=== PATIENT | female | born 1990 | race Caucasian/White ===

== ENCOUNTER 2023-04-15 13:38 | Inpatient (IN) | payer MEDICAID, SELFPAY ==
[2023-04-15 13:41] VITALS: BP 132/91; PULSE 120; RESP 20; TEMP 37.2; O2SAT 98
--- NOTE | 2023-04-15 13:45 | DI.US_ITS ---
Exam(s) US PELVIS TRANSVAGINAL EXAM: US PELVIS TRANSVAGINAL CLINICAL HISTORY: heavy vaginal bleeding, lower abd pain. TECHNIQUE: Transabdominal and transvaginal pelvic ultrasound was performed using standard protocol. COMPARISON: No exams were available for comparison FINDINGS: UTERUS: Position: Anteverted. Size: 7.5 long by 4.0 AP by 4.9 transverse cm Endometrium: 0.5 cm. Normal for patient's menstrual status. Myometrium: Unremarkable. Cervix: Unremarkable. OVARIES: Right: 3.3 x 1.5 x 1.5 cm Cyst or mass: No suspicious cystic or solid masses. Left: 3.2 x 2.2 x 1.8 cm Cyst or mass: No suspicious cystic or solid masses. DOPPLER: Color: Symmetric and uniform flow to both ovaries. CUL-DE-SAC: Free fluid: None. Other: There is a 5.3 x 2.9 x 4.0 cm complex fluid collection posterior to both the uterus and the re ctum raising the question of an abscess. IMPRESSION: 1. Normal-appearing uterus with endometrial stripe within normal limits. 2. Unremarkable bilateral ovaries. 3. 5.3 x 2.9 x 4 cm complex fluid collection posterior to both the uterus in the rectum suspicious fo r perirectal abscess. CT scan of the pelvis is recommended for further evaluation. 4. Findings were discussed with Dr. Villa at 3:23 p.m. on 04/15/2023. DATA REPOSITORY:
[2023-04-15 14:16] VITALS: BP 128/90; PULSE 120
[2023-04-15 14:18] LABS: Abs Immature Grans 0.14 10^3/uL (0.0-0.06); Absolute Basophil Count 0.08 10^3/uL (0.0-0.2); Absolute Eosinophil Count 0.12 10^3/uL (0.0-0.7); Absolute Lymphocyte Count 1.92 10^3/uL (1.2-3.4); Absolute Monocyte Count 1.07 10^3/uL (0.1-0.8); Absolute Neutrophil Count 9.91 10^3/uL (1.2-6.7); Basophils % 0.6; Eosinophils % 0.9; HCT 41.4 % (36.0-46.0); HGB 13.3 g/dL (11.2-15.7); Immature Grans % 1.1; Lymphocytes % 14.5; MCHC 32.1 % (32.0-36.0); MCV 84 fL (80-95); MPV 8.9 fL (8.0-11.0); Monocytes % 8.1; Neutrophils % 74.8; Platelet Count 401 10^3/uL (130-400); RBC 4.93 10^6/uL (3.93-5.22); RDW 12.8 % (11.7-14.6); RDW-SD 39.1 fL; WBC 13.25 10^3/uL (4.4-10.8)
--- NOTE | 2023-04-15 14:24 | W.ED.GENAD ---
Discharge Plan Disposition Patient Disposition: Admit to [facility] Condition: Serious Discharge Details Clinical Impression: Abscess, perirectal Primary Care Provider: Unknown,Unknown ED Provider: Marlin Villa Home Meds and New Rx's Prescriptions: No Action acetaminophen [Aphen] 325 mg tablet 325 mg PO Q4H PRN ibuprofen [IBU] 800 mg tablet 800 mg PO Q6H Medical Decision Making 32yo F with PCOS presenting with intermittent heavy vaginal bleeding x 3 weeks and low abdominal pain radiating into her back. Associated sensation of pressure in her vagina and rectum. Has been taking maximum dose tylenol and ibuprofen at home without significant improvement in symptoms. Systemically well. Tachycardiac on arrival to 120, vital signs otherwise reassuring, afebrile. Well appearing, not overtly septic. Abdominal exam with mild lower abdominal tenderness with no peritoneal signs. Will treat pain with toradol, PO oxycodone. Labs reviewed as below, CBC with no anemia, borderline leukocytosis at 13, CMP with no actionable abnormalities, serum negative. Pelvic ultrasound as below, discussed with radiologist; normal uterus and ovaries, no torsion, however does have fluid collection in pelvis. CT ordered and independently reviewed, agree with radiology read below with rectosigmoid abscess. On reassessment patient remains well appearing, reports pain had improved but is again increasing. Remains tachycardiac to the 110's. Will add IV morphine and give IVFB. Technically meets SIRS/sepsis criteria with white count (just over 13) and tachcyardia but remains overall well appearing and feels systemically well. Lactate order. Needs source control rather than antibiotics. Discussed with Dr. Mendez from surgery who will evaluate case. Discussed with anesthesiologist director of cardiopulmonary services. Signed out to oncoming physician; anticipate admission to surgery. Imaging Data Radiologic Study: Imaging: Ultrasound Radiologist's impression: IMPRESSION: 1. Normal-appearing uterus with endometrial stripe within normal limits. 2. Unremarkable bilateral ovaries. 3. 5.3 x 2.9 x 4 cm complex fluid collection posterior to both the uterus in the rectum suspicious for perirectal abscess. CT scan of the pelvis is recommended for further evaluation. 4. Findings were discussed with Dr. Villa at 3:23 p.m. on 04/15/2023. Radiologic Study #2: Imaging: CT Scan Radiologist's impression: IMPRESSION: 1. Wall thickening involving the distal sigmoid colon and the rectum with adjacent inflammatory changes. The findings are consistent with the recto colitis. 2. 4.1 x 5.1 x 6.1 cm thick walled fluid collection to the right of the inflamed rectosigmoid colon. This is suspicious for an abscess. A normal appendix is not visualized. Due to its proximity to the cecum, an acute appendicitis cannot be entirely excluded. 3. No pneumoperitoneum. 4. Findings were discussed with Dr. Villa at 4:11 p.m. on 04/15/2023. Lab Data Lab results reviewed: Yes I reviewed the patient's lab results. Labs: Laboratory Tests Range/Units 04/15/23 14:05 WBC (4.4-10.8) 10^3/uL 13.25 H RBC (3.93-5.22) 10^6/uL 4.93 Hgb (11.2-15.7) g/dL 13.3 Hct (36.0-46.0) % 41.4 MCV (80-95) fL 84 MCH (27.0-33.0) pg 27.0 MCHC (32.0-36.0) % 32.1 RDW (11.7-14.6) % 12.8 Plt Count (130-400) 10^3/uL 401 H MPV (8.0-11.0) fL 8.9 Immature Gran % 1.1 Neutrophils % 74.8 Lymphocytes % 14.5 Monocytes % 8.1 Eosinophils % 0.9 Basophils % 0.6 Nucleated RBC % (0.0-0.3) % 0.0 Absolute Neutrophils (1.2-6.7) 10^3/uL 9.91 H Absolute Lymphocytes (1.2-3.4) 10^3/uL 1.92 Absolute Monocytes (0.1-0.8) 10^3/uL 1.07 H Absolute Eosinophils (0.0-0.7) 10^3/uL 0.12 Absolute Basophils (0.0-0.2) 10^3/uL 0.08 Sodium (136-145) mmol/L 134 L Potassium (3.5-5.1) mmol/L 3.6 Chloride (98-107) mmol/L 97 L Carbon Dioxide (21.0-32.0) mmol/L 25.4 Anion Gap (3-11) mmol/L 11.6 H BUN (7-18) mg/dL 8 Creatinine (0.55-1.02) mg/dL 0.7 Est GFR (CKD-EPI 2020) (mL/min/1.73m2) 118.51 Glucose (74-106) mg/dL 105 Calcium (8.5-10.1) mg/dL 9.6 Total Bilirubin (0.2-1.0) mg/dL 0.6 AST (15-37) U/L 17 ALT (14-59) U/L 34 Alkaline Phosphatase (46-116) U/L 101 Total Protein (6.4-8.2) g/dL 8.6 H Albumin (3.4-5.0) g/dL 2.9 L Beta HCG, Quant (1-3) mIU/mL 1 Patient ABO/Rh O Positive Antibody Screen NEGATIVE HPI General Mode of arrival: ambulatory. Date/Time Provider Initiated Documentation: 04/15/23 13:52. Limitations to Documentation: no limitations. Information obtained by: patient. HPI Narrative: 32yo F with PCOS presenting with intermittent heavy vaginal bleeding x 3 weeks and low abdominal pain radiating into her back. Associated sensation of pressure in her vagina and rectum. Has been taking maximum dose tylenol and ibuprofen at home without significant improvement in symptoms. Associated nausea when the pain is most severe, no vomiting. No constipation, diarrhea, or bloody stool. Does feel somewhat lightheaded. Has not passed out. No dysuira, hematuria, or vaginal discharge. Has had a tubal ligation. She is otherwise in her usual state of health with no fevers, chills, rash, chest pain, shortness of breath, or other concerns. Related Data Home Medications Medication Instructions Recorded Confirmed acetaminophen 325 mg tablet (Aphen) 325 mg PO Q4H PRN 04/15/23 04/15/23 ibuprofen 800 mg tablet (IBU) 800 mg PO Q6H 04/15/23 04/15/23 Allergies Allergy/AdvReac Type Severity Reaction Status Date / Time No Known Allergies Allergy Unverified 04/15/23 13:49 General Stated Complaint: Abd Prob STEVEN: 3 Review of Systems Narrative: see HPI PFSH All Active Problems (Updated 04/15/23 @ 16:35 by Marlin Villa MD) Abscess, perirectal (Acute) Social History Smoking risk assessment performed?: No Exam Narrative Exam Narrative: General: Alert, well appearing, well nourished, in no acute distress. Head: Normocephalic, atraumatic Neck: Trachea midline, Neck supple. Cardiac: Tachycardiac to 110's, regular, no murmurs appreciated Resp: No respiratory distress. CTAB. Abd: Soft, non-distended, mild lower abdominal tenderness with no rebound or guarding. : No suprapubic tenderness. No active vaginal bleeding. Extremities: No deformities. No peripheral edema. Neurologic: GCS 15. Moves all extremities freely against gravity Course Vital Signs Vital signs: Vital Signs Temperature 37.2 C 04/15/23 13:41 Pulse 120 H 04/15/23 13:41 Respiratory Rate 20 04/15/23 13:41 Blood Pressure 132/91 H 04/15/23 13:41 Pulse Oximetry 98 04/15/23 13:41 Temperature 37.2 C 04/15/23 13:41 Temperature Source Oral 04/15/23 13:41 Pulse 120 H 04/15/23 13:41 Respiratory Rate 20 04/15/23 13:41 Blood Pressure 132/91 H 04/15/23 13:41 Blood Pressure Position Sitting 04/15/23 13:41 Pulse Oximetry 98 04/15/23 13:41 Oxygen Delivery Method Room Air 04/15/23 13:41 Oxygen Flow Rate 0 04/15/23 13:41 Lab/Test Results Lab/Test Results: Laboratory Tests Range/Units 04/15/23 14:05 WBC (4.4-10.8) 10^3/uL 13.25 H RBC (3.93-5.22) 10^6/uL 4.93 Hgb (11.2-15.7) g/dL 13.3 Hct (36.0-46.0) % 41.4 MCV (80-95) fL 84 MCH (27.0-33.0) pg 27.0 MCHC (32.0-36.0) % 32.1 RDW (11.7-14.6) % 12.8 Plt Count (130-400) 10^3/uL 401 H MPV (8.0-11.0) fL 8.9 Immature Gran % 1.1 Neutrophils % 74.8 Lymphocytes % 14.5 Monocytes % 8.1 Eosinophils % 0.9 Basophils % 0.6 Nucleated RBC % (0.0-0.3) % 0.0 Absolute Neutrophils (1.2-6.7) 10^3/uL 9.91 H Absolute Lymphocytes (1.2-3.4) 10^3/uL 1.92 Absolute Monocytes (0.1-0.8) 10^3/uL 1.07 H Absolute Eosinophils (0.0-0.7) 10^3/uL 0.12 Absolute Basophils (0.0-0.2) 10^3/uL 0.08 Sign Out Sign Out Data: Sign Out Comment: Rectosigmoid abscess. Pending lactic and UA, surgery to see. Anticipate admission. Last updated by Marlin Villa MD at 04/15/23 16:44
[2023-04-15 14:31] VITALS: BP 136/82; PULSE 119
[2023-04-15] MEDS: Ketorolac 15 MG/ML VIAL IVP (14:34)
[2023-04-15] MEDS: oxyCODONE 5 MG TAB PO (14:35)
[2023-04-15] MEDS: Normal Saline 1,000 ML 1000 ML IV (14:35)
[2023-04-15 14:38] LABS: ALT 34 U/L (14-59); AST 17 U/L (15-37); Albumin 2.9 g/dL (3.4-5.0); Alkaline Phosphatase 101 U/L (46-116); Anion Gap 11.6 mmol/L (3-11); BUN 8 mg/dL (7-18); Bilirubin, Total 0.6 mg/dL (0.2-1.0); CO2 25.4 mmol/L (21.0-32.0); CREATININE 0.7 mg/dL (0.55-1.02); Calcium 9.6 mg/dL (8.5-10.1); Chloride 97 mmol/L (98-107); Estimated GFR 118.51 (mL/min/1.73m2); Glucose 105 mg/dL (74-106); HCG Quant, Pregnancy 1 mIU/mL (1-3); Potassium 3.6 mmol/L (3.5-5.1); Sodium 134 mmol/L (136-145); Total Protein 8.6 g/dL (6.4-8.2)
--- NOTE | 2023-04-15 15:30 | DI.CT_ITS ---
Exam(s) CT ABDOMEN PELVIS W EXAM: CT ABDOMEN PELVIS W CLINICAL HISTORY: lower abdominal pain/pressure TECHNIQUE: Imaging Protocol: Axial computed tomography images with coronal and sagittal reformatted images were created and reviewed CONTRAST MATERIAL: Intravenous: Omnipaque 350 Contrast volume:100 mL Oral: No COMPARISON: No exams were available for comparison FINDINGS: ABDOMEN: Lung Bases: Normal where visualized. Liver: Normal density. No measurable mass. Portal, Superior Mesenteric, and Splenic Veins: Unremarkable. Gallbladder and Biliary Tract: Status post cholecystectomy. No significant biliary ductal dilatation is present. The common duct size likely reflects the post cholecystectomy state. Pancreas: Normal density, no abnormal calcifications or inflammatory process. Spleen: Normal. Adrenals: No masses seen. Kidneys: Normal size, contour and axis. No radiodense stones or obstructive uropathy. No masses seen. Abdominal Aorta: Abdominal portion non-dilated. Bowel: There is bowel wall thickening involving the distal sigmoid and rectum. There is stranding se en in the surrounding soft tissues. There is also a fluid collection measuring 4.1 craniocaudad by 5 .1 transverse by 6.1 cm AP. It has thickened wall in lies to the right of the inflamed rectosigmoid junction. This likely reflects an abscess. This appears to correspond to the finding seen on the pe lvic ultrasound from the same day. There is no evidence of bowel obstruction. A normal appendix is not visualized. There is no pneumatosis. Peritoneal Cavity: No ascites, collection or mesenteric inflammatory response. No free air. Lymph Nodes: Mild enlarged reactive lymph nodes are seen in the pelvis. Bones: Within normal limits for the patient's age. Soft Tissues: No evidence of a subcutaneous abscess is seen. PELVIS: Bladder: Symmetric distention, no gross wall thickening. Reproductive Organs: Unremarkable as visualized. Lymph Nodes: Within normal limits. Bones: Within normal limits for the patient's age. IMPRESSION: 1. Wall thickening involving the distal sigmoid colon and the rectum with adjacent inflammatory morales es. The findings are consistent with the recto colitis. 2. 4.1 x 5.1 x 6.1 cm thick walled fluid collection to the right of the inflamed rectosigmoid colon. This is suspicious for an abscess. A normal appendix is not visualized. Due to its proximity to th e cecum, an acute appendicitis cannot be entirely excluded. 3. No pneumoperitoneum. 4. Findings were discussed with Dr. Boccia at 4:11 p.m. on 04/15/2023. RADIATION DOSE DELIVERED: Total DLP DATA REPOSITORY: All CT scans at this facility are submitted to the National Radiology Data Registry (NRDR) Dose Index Registry (DIR) with the [employer] (ACR). RADIATION OPTIMIZATION: All CT scans at this facility use at least one of these dose optimization te chniques: automated exposure control; mA and/or kV adjustment per patient size (includes targeted exa ms where dose is matched to clinical indication); or iterative reconstruction.
[2023-04-15] MEDS: Normal Saline - Diluent 50 ML VIAL IJ (15:42)
[2023-04-15] MEDS: Omnipaque 350 MG/ML 100 ML BTL IJ (15:43)
[2023-04-15 16:43] LABS: Lactate 0.6 mmol/L (0.6-1.4)
[2023-04-15] MEDS: Ondansetron 4 MG/2 ML VIAL IVP ×2 (16:46→21:53)
--- NOTE | 2023-04-15 17:01 | W.EDPROG ---
Date of service: 04/15/23 Time of Service: 17:01 Medical Decision Making I received signout on this 32-year-old female found to have a rectosigmoid abscess for which general surgery has been consulted. She has a normal creatinine. Comprehensive metabolic panel showing normal renal function no acute LFT abnormalities. COVID-negative. CBC with leukocytosis. No thrombocytopenia. Elevated CRP. Given pending general surgery consult will order piperacillin tazobactam to cover abscess. Reassuring normal lactate. 6 PM I spoke with Dr. Mendez the general surgery team who graciously agreed to hospitalize the patient. Sign Out Sign Out Data: Sign Out Comment: Rectosigmoid abscess. Pending lactic and UA, surgery to see. Anticipate admission. Last updated by Marlin Villa MD at 04/15/23 16:44 Discharge Plan Disposition Patient Disposition: Admit to [facility] Condition: Serious Discharge Details Clinical Impression: Abscess, perirectal Admit Date/Time: 04/15/23 17:20 Admit Provider: Stiven Mendez Attending Provider: Stiven Mendez Primary Care Provider: Unknown,Unknown ED Provider: Abdirahman Marshall Discharge Data Discharge Date/Time-TO BE ENTERED AT DEPARTURE: 04/15/23 18:19
[2023-04-15] MEDS: PIPERACILLIN/TAZO 3.375 GM in Normal Saline 50 ML IVPB (17:17)
--- NOTE | 2023-04-15 17:19 | HPE_ITS ---
Date of service: 04/15/23 Time of Service: 17:19 Assessment and Plan Assessment and plan (1) Pelvic abscess in female: Status: Acute Assessment and plan: Her CT supports a diagnosis of deep pelvic abscess. There is some sign of thickening inflammation of the rectosigmoid junction, but I do not see any clear signs of diverticulitis. In the absence of an obvious appendix suggest perforated appendicitis as a leading diagnosis. Given her tachycardia and leukocytosis, she has certainly has signs of sepsis. For now, we will start her on some broad-spectrum antibiotics. I suspect she will respond to some more resuscitation, and I do not see a compelling reason to move to the operating room emergently. Especially given the duration of her symptoms. I do think she would be a good candidate for percutaneous drainage if this is accessible. I have already shared the images with the radiologist at [facility], and awaiting further definitive opinion regarding whether or not this is accessible if it is, that I would favor moving forward with percutaneous drainage. If not, we can attempt a short trial of nonoperative management and antibiotics, but given the size of the abscess, I am skeptical that antibiotics alone would treat this completely. History of Present Illness History of Present Illness Chief Complaint: abdominal pain Narrative: Cathy is 32 years old, and she began experiencing abdominal discomfort about 20 days ago. At first, she felt like it was a sense of heaviness in the lower part of her abdomen. It was associated with some vaginal bleeding, and she suspected this might be menstruation. However, the symptoms continue to evolve, and she developed pain that became more sharp across the midportion of her lower abdomen. For the first week or so, the pain seem to wax and wane. She then started to develop a sense of needing to move her bowels and empty her bladder, and this became more uncomfortable over the past week or so. For the past 24 hours she has had loss of appetite with some nausea, and increased intensity of the pain in her lower abdomen. She came to the emergency department was found have a white blood cell count around 13,000. She underwent a CAT scan of the abdomen and pelvis that showed a pelvic abscess. She also has a little bit of inflammation of the rectal wall adjacent to the abscess. There is no signs of diverticulitis, and the absence of an obvious appendix raises the possibility of perforated appendicitis. Review of Systems Constitutional Constitutional: Reports fatigue, Denies fever(s), Reports lethargy and Reports poor appetite Eyes Eyes: Reports system reviewed and no additional complaints, except as documented ENT Ears, Nose, Mouth, and Throat: Reports system reviewed and no additional complaints, except as documented Cardiovascular Cardiovascular: Denies chest pain and Denies dyspnea Respiratory Respiratory: Denies chest congestion, Denies cough and Denies dyspnea Gastrointestinal Gastrointestinal: Reports abdominal pain, Reports change in bowel habits, Reports cramping, Denies diarrhea and Reports nausea Genitourinary Genitourinary: Reports system reviewed and no additional complaints, except as documented Neurologic Neurologic: Reports system reviewed and no additional complaints, except as documented Endocrine Endocrine: Reports fatigue Hematologic/Lymphatic Hematologic/Lymphatic: Denies easy bleeding and Denies easy bruising PFSH All Active Problems (Updated 04/15/23 @ 21:08 by Stiven Mendez MD) Pelvic abscess in female (Acute) Social History Smoking risk assessment performed?: No Meds Allergies and Home Medications Allergies Allergy/AdvReac Type Severity Reaction Status Date / Time No Known Allergies Allergy Unverified 04/15/23 13:49 Home Medications Medication Instructions Recorded Confirmed Type acetaminophen 325 mg tablet (Aphen) 325 mg PO Q4H PRN 04/15/23 04/15/23 History ibuprofen 800 mg tablet (IBU) 800 mg PO Q6H 04/15/23 04/15/23 History Exam Const General: cooperative and comfortable Orientation: alert, awake and oriented x3 HENMT Head: normal to inspection Eyes General: appearance normal, both eyes and all related structures Neck Neck: normal visual inspection, full ROM and no lymphadenopathy Chest Chest: normal inspection of the chest Resp Effort & Inspection: no cough Auscultation: clear to auscultation bilaterally Cardio Rate: tachycardic Rhythm: regular rhythm Heart Sounds: S1 normal GI Inspection: normal to inspection Palpation: no guarding, no hernias and tender suprapubicly Percussion: normal to percussion Skin General skin exam: no rashes or lesions noted Neuro General: patient alert, patient awake and patient oriented x3 Extrem General: normal to inspection Results Imaging Abdomen CT scan report/results: report reviewed and image reviewed CT scan - pelvis: report reviewed and image reviewed Labs 04/15/23 14:05 04/15/23 14:05 Labs: Laboratory Results - last 24 hr 04/15/23 04/15/23 14:05 16:39 WBC 13.25 H RBC 4.93 Hgb 13.3 Hct 41.4 MCV 84 MCH 27.0 MCHC 32.1 RDW 12.8 Plt Count 401 H MPV 8.9 Immature Gran % 1.1 Neutrophils % 74.8 Lymphocytes % 14.5 Monocytes % 8.1 Eosinophils % 0.9 Basophils % 0.6 Nucleated RBC % 0.0 Absolute Neutrophils 9.91 H Absolute Lymphocytes 1.92 Absolute Monocytes 1.07 H Absolute Eosinophils 0.12 Absolute Basophils 0.08 VBG Lactate 0.6 Sodium 134 L Potassium 3.6 Chloride 97 L Carbon Dioxide 25.4 Anion Gap 11.6 H BUN 8 Creatinine 0.7 Est GFR (CKD-EPI 2020) 118.51 Glucose 105 Calcium 9.6 Total Bilirubin 0.6 AST 17 ALT 34 Alkaline Phosphatase 101 Total Protein 8.6 H Albumin 2.9 L Beta HCG, Quant 1 Patient ABO/Rh O Positive Antibody Screen NEGATIVE Last Vital Signs Temp 99 F 04/15/23 13:41 Pulse 119 H 04/15/23 14:31 Resp 20 04/15/23 13:41 BP 136/82 04/15/23 14:31 Pulse Ox 98 04/15/23 13:41 Time Spent Time spent with Patient: 55-74 minutes Time was spent: preparing to see the patient(eg.review tests), obtaining and/or reviewing separately otained hiistory, ordering medications,tests, procedures, referring, communicating with other health medicare sales executive, indepentently interpreting results, counseling the patient and care coordination
[2023-04-15] MEDS: Lactated Ringers 1,000 ML 75 ML IV (19:00)
[2023-04-15] MEDS: Lactated Ringers 500 ML 1000 ML IV (19:14)
[2023-04-15 19:56] VITALS: BP 121/78; PULSE 89; RESP 18; TEMP 36.5; O2SAT 93
[2023-04-15] MEDS: ACETAMINOPHEN 1,000 MG/100 ML BTL 400 MG IVPB (20:22)
[2023-04-15] MEDS: Normal Saline Flush 10 ML SYR IVP (20:23)
[2023-04-15 20:57] LABS: Bilirubin Negative (Negative); Blood Negative (Negative); Clarity Clear (Clear); Glucose Negative (Negative); Ketones Negative (Negative); Leukocyte Esterase Negative (Negative); Nitrite Negative (Negative); Specific Gravity <= 1.005 (1.005-1.025); Urobilinogen 0.2 mg/dL (Up to 0.2); pH 5.5 (5-8)
[2023-04-15 21:06] VITALS: BP 120/76; PULSE 105; RESP 16; TEMP 37.3; O2SAT 95
[2023-04-15 22:18] LABS: Abs Immature Grans 0.09 10^3/uL (0.0-0.06); Absolute Basophil Count 0.05 10^3/uL (0.0-0.2); Absolute Eosinophil Count 0.19 10^3/uL (0.0-0.7); Absolute Lymphocyte Count 3.12 10^3/uL (1.2-3.4); Absolute Monocyte Count 1.33 10^3/uL (0.1-0.8); Absolute Neutrophil Count 7.16 10^3/uL (1.2-6.7); Basophils % 0.4; Eosinophils % 1.6; HGB 10.5 g/dL (11.2-15.7); Immature Grans % 0.8; Lymphocytes % 26.1; MCH 27.6 pg (27.0-33.0); MCHC 32.8 % (32.0-36.0); MCV 84 fL (80-95); MPV 8.7 fL (8.0-11.0); Monocytes % 11.1; Platelet Count 297 10^3/uL (130-400); RBC 3.81 10^6/uL (3.93-5.22); RDW 12.9 % (11.7-14.6); RDW-SD 39.3 fL; WBC 11.94 10^3/uL (4.4-10.8)
[2023-04-16] VITALS (9 sets, daily range): BP systolic 89–135; BP diastolic 61–90; PULSE 60–104; RESP 16–20; TEMP 35.9–37.4; O2SAT 96–100
[2023-04-16] MEDS: Ketorolac 15 MG/ML VIAL IVP ×4 (00:30→23:29)
[2023-04-16] MEDS: PIPERACILLIN/TAZO 3.375 GM in Normal Saline 50 ML IVPB ×4 (00:30→23:30)
[2023-04-16] MEDS: Normal Saline Flush 10 ML SYR IVP ×4 (00:31→23:31)
[2023-04-16] MEDS: ACETAMINOPHEN 1,000 MG/100 ML BTL 400 MG IVPB ×3 (04:02→19:46)
[2023-04-16] MEDS: Ondansetron 4 MG/2 ML VIAL IVP ×3 (04:10→19:41)
[2023-04-16 08:39] LABS: Anion Gap 7.8 mmol/L (3-11); BUN 10 mg/dL (7-18); CO2 28.2 mmol/L (21.0-32.0); CREATININE 0.9 mg/dL (0.55-1.02); Calcium 8.8 mg/dL (8.5-10.1); Chloride 102 mmol/L (98-107); Estimated GFR 87.65 (mL/min/1.73m2); Glucose 102 mg/dL (74-106); Potassium 3.7 mmol/L (3.5-5.1); Sodium 138 mmol/L (136-145)
[2023-04-16 09:25] LABS: HCT 32.9 % (36.0-46.0); HGB 10.7 g/dL (11.2-15.7); MCH 27.7 pg (27.0-33.0); MCHC 32.5 % (32.0-36.0); MCV 85 fL (80-95); RBC 3.86 10^6/uL (3.93-5.22); RDW 13.1 % (11.7-14.6); RDW-SD 40.6 fL; WBC 7.82 10^3/uL (4.4-10.8)
[2023-04-16 09:26] LABS: MPV 8.8 fL (8.0-11.0); Platelet Count 295 10^3/uL (130-400)
--- NOTE | 2023-04-16 11:50 | INITIAL_ITS ---
Date of service: 04/16/23 Time of Service: 11:50 [facility] All Active Problems Acute gangrenous appendicitis with perforation and peritonitis (Acute) Pelvic abscess in female (Acute) Social History Smoking risk assessment performed?: No Housing: condominium
[2023-04-16] MEDS: HYDROmorphone 2 MG/ML SYR 1 MG IVP (17:48)
[2023-04-16] MEDS: Lactated Ringers 1,000 ML 75 ML IV (17:50)
[2023-04-16] MEDS: LORazepam 2 MG/ML VIAL 0.5 MG IVP (18:14)
[2023-04-16] MEDS: Methocarbamol 750 MG TAB PO (18:50)
[2023-04-16] MEDS: Prochlorperazine 10 MG/2 ML VIAL 5 MG IVP (22:08)
[2023-04-17 03:25] VITALS: BP 109/72; PULSE 68; RESP 18; TEMP 36.1; O2SAT 96
[2023-04-17] MEDS: ACETAMINOPHEN 1,000 MG/100 ML BTL 400 MG IVPB ×3 (03:40→20:28)
[2023-04-17] MEDS: Promethazine 25 MG TAB PO (03:49)
[2023-04-17] MEDS: oxyCODONE 5 MG TAB PO (03:49)
[2023-04-17] MEDS: Ketorolac 15 MG/ML VIAL IVP ×4 (05:52→23:38)
[2023-04-17] MEDS: PIPERACILLIN/TAZO 3.375 GM in Normal Saline 50 ML IVPB ×4 (05:55→23:33)
[2023-04-17 08:00] VITALS: BP 99/67; PULSE 62; RESP 18; TEMP 36.4; O2SAT 97
[2023-04-17] MEDS: Methocarbamol 750 MG TAB PO ×4 (08:37→20:28)
[2023-04-17] MEDS: Normal Saline Flush 10 ML SYR IVP ×6 (08:37→23:39)
[2023-04-17] MEDS: Psyllium PKT 1 EACH PO (08:37)
[2023-04-17] MEDS: Polyethylene Glycol 3350 17 GM PACKET PO (08:37)
[2023-04-17 08:42] LABS: C-Reactive Protein 12.54 mg/dL (0.0-0.3)
--- NOTE | 2023-04-17 09:49 | PGE_ITS ---
Date of Service Date of service: 04/17/23 Time of Service: 09:49 Assessment and Plan Assessment and plan (1) Pelvic abscess in female: Status: Acute Assessment and plan: post op day 1 S/P drain placement via IR at [facility] Will trial aqua K pack and scheduled robaxin to help reduce discomfort. Will restart regular diet. Encouraged ambulation and activity OOB as tolerated Continue IV antibiotics. Discussed with both the patient and nsg the importance of patient education around drain management. Will reassess pain control later today. Subjective Subjective Interval history since last seen: patient reports she is having significant discomfort in her buttocks following the drain placement. She states this pain is worse then what she has ever experienced previously. She states she is able to ambulate and use the restroom without any difficulty. Denies nausea, vomiting or fevers. Exam Const General: cooperative, healthy appearing, comfortable and anxious Orientation: alert and oriented x3 Resp Effort & Inspection: normal respiratory effort, no audible wheezes and no cough GI Other: Drain in place, scan serous fluid noted in bulb. Discussed with nsg and requested the drain to be flushed. Unable to strip and promote drainage of co ntents within the tubing of the drain. Objective Last Vital Signs Temp 36.4 C L 04/17/23 08:00 Pulse 62 04/17/23 08:00 Resp 18 04/17/23 08:00 BP 99/67 L 04/17/23 08:00 Pulse Ox 97 04/17/23 08:00 Laboratory Results - last 24 hr 04/17/23 08:15 C-Reactive Protein 12.54 H PAWSS Have you Been Recently Intoxicated or Drunk Within the Last 30 days?: No Have you Ever Experienced Previous Episodes of Alcohol Withdrawal?: No Have you ever Experienced Withdrawal Seizures?: No Have you ever Experienced Delirium Tremens(DT)s?: No Have you ever undergone Alcohol Rehabilitation Treatment (i.e, inpt ot outpatient treatment programs)?: No Have you ever Experienced Blackouts?: No Have you ever Combined Alcohol with other Downers within the last 90 days?: No Have you ever Combined Alcohol with any other Substance of Abuse during the last 90 days?: No Positive Blood Alcohol level on Presentation? [PCS.BAL]: No Evidence of Increased Autonomic Activity (i.e. HR>120, tremor, sweating, agitation, nausea)?: No Result: 0 Time Spent with Patient Time Spent with Patient: <25 minutes Time was spent: preparing to see the patient(eg.review tests) and ordering medications,tests, procedures
--- NOTE | 2023-04-17 11:04 | PDOC.CMPRO ---
Date of service: 04/17/23 Time of Service: 11:04 Care Management Progress Note Progress Note Text Progress Note Text: S/O:Cathy was sitting up in bed when CM met with her. She stated that she continues to have a lot of pain and that her pain medicine is being adjusted. She identified the biggest issue she has at the moment is determining who can help her flush and empty her drain 4 times a day. She is a single parent and her oldest child is only 8. She has a boyfriend but he lives in [place] and is not available most days due to his work schedule. Cathy stated that she discussed this with Dr. Mendez and he will try to come up with a solution. The problem is that the drain is in her back and she can neither see it nor reach it. A: Cathy is a 32 year old woman admitted on 04/15/23 with a pelvic abscess P:Cathy will likely be discharged home with no new services. She will follow up with surgery and her plan of care and transport with family. CM will follow and continue to assess for discharge needs.
[2023-04-17 11:48] VITALS: BP 97/65; PULSE 71; RESP 18; TEMP 36.4; O2SAT 96
[2023-04-17] MEDS: Lactated Ringers 1,000 ML 75 ML IV ×2 (11:55→23:35)
--- NOTE | 2023-04-17 12:15 | PDOC.HHF2F ---
Home Health Referral Home Health Orders Clinical synopsis of why skilled professionals are needed: Cathy is a 32-year-old woman with a pelvic abscess that required percutaneous drainage. She has a new drain exiting her back. She has difficulty assessing the access site because of its location Medical diagnosis necessitation home health referral: Pelvic abscess with percutaneous drainage Registered Nurse: Check all that apply Assess wound for signs and symptoms of infection, instruct on wound care and/or provide skilled wound care consisting of: Cathy needs assistance with drain care and maintenance because of the location on her body Encounter Date and Reason: I certify that a FTF encounter for this patient was performed on April 17, 2023 and that such encounter was related to the primary reason the patient requires home health services. The encounter was conducted in the following manner: By me as the certifying physician, GREENS CUTTER, PA or By an inpatient physician, GREENS CUTTER or PA during an inpatient stay who communicated findings to me, Certification And Authentication I certify that I composed the above information based on my clinical judgment relating to this patient's medical condition and, if applicable, clinical findings communicated to me by the NPP or inpatient physician who performed the FTF encounter. Name of Provider that will be monitoring home health services: Stiven Mendez
[2023-04-17 15:24] VITALS: BP 114/78; PULSE 85; RESP 19; TEMP 36.9; O2SAT 97
[2023-04-17 19:51] VITALS: BP 117/79; PULSE 87; RESP 19; TEMP 37; O2SAT 95
[2023-04-17 23:46] VITALS: BP 112/74; PULSE 76; RESP 16; TEMP 36.4; O2SAT 96
[2023-04-18] MEDS: diphenhydrAMINE 25 MG CAP PO (01:23)
[2023-04-18 03:23] VITALS: BP 109/71; PULSE 70; RESP 16; TEMP 36.2; O2SAT 95
[2023-04-18] MEDS: ACETAMINOPHEN 1,000 MG/100 ML BTL 400 MG IVPB ×2 (03:55→11:10)
[2023-04-18] MEDS: Ketorolac 15 MG/ML VIAL IVP ×2 (05:38→12:20)
[2023-04-18] MEDS: Normal Saline Flush 10 ML SYR IVP ×2 (05:39→12:20)
[2023-04-18] MEDS: PIPERACILLIN/TAZO 3.375 GM in Normal Saline 50 ML IVPB ×2 (05:42→12:20)
[2023-04-18 07:27] VITALS: BP 114/70; PULSE 77; RESP 18; TEMP 36.9; O2SAT 96
[2023-04-18 07:28] LABS: C-Reactive Protein 7.22 mg/dL (0.0-0.3)
[2023-04-18] MEDS: Methocarbamol 750 MG TAB PO ×2 (08:16→12:20)
[2023-04-18 10:11] LABS: HCT 35.6 % (36.0-46.0); HGB 11.7 g/dL (11.2-15.7); MCH 27.9 pg (27.0-33.0); MCHC 32.9 % (32.0-36.0); MCV 85 fL (80-95); MPV 9.2 fL (8.0-11.0); Platelet Count 424 10^3/uL (130-400); RBC 4.19 10^6/uL (3.93-5.22); RDW 12.7 % (11.7-14.6); WBC 7.17 10^3/uL (4.4-10.8)
[2023-04-18 11:18] VITALS: BP 106/70; PULSE 66; RESP 18; TEMP 36.6; O2SAT 96
--- NOTE | 2023-04-18 11:31 | W.PM.PROGNOT ---
Objective Last Vital Signs Temp 97.9 F 04/18/23 11:18 Pulse 66 04/18/23 11:18 Resp 18 04/18/23 11:18 BP 106/70 04/18/23 11:18 Pulse Ox 96 04/18/23 11:18 Laboratory Results - last 24 hr 04/18/23 06:13 WBC 7.17 RBC 4.19 Hgb 11.7 Hct 35.6 L MCV 85 MCH 27.9 MCHC 32.9 RDW 12.7 Plt Count 424 H MPV 9.2 C-Reactive Protein 7.22 H PAWSS Have you Been Recently Intoxicated or Drunk Within the Last 30 days?: No Have you Ever Experienced Previous Episodes of Alcohol Withdrawal?: No Have you ever Experienced Withdrawal Seizures?: No Have you ever Experienced Delirium Tremens(DT)s?: No Have you ever undergone Alcohol Rehabilitation Treatment (i.e, inpt ot outpatient treatment programs)?: No Have you ever Experienced Blackouts?: No Have you ever Combined Alcohol with other Downers within the last 90 days?: No Have you ever Combined Alcohol with any other Substance of Abuse during the last 90 days?: No Positive Blood Alcohol level on Presentation? [PCS.BAL]: No Evidence of Increased Autonomic Activity (i.e. HR>120, tremor, sweating, agitation, nausea)?: No Result: 0
--- NOTE | 2023-04-18 12:29 | W.PM.DS.N ---
Date of service: 04/18/23 Time of Service: 12:32 DS: Diagnosis Discharge Diagnosis (1) Pelvic abscess in female: Status: Acute Asessment and Plan: 32-year-old woman is doing well. She feels ready to go home. No fevers in the last 24 hours. No leukocytosis. Tolerating a regular diet. She has completed 48 hours of IV antibiotics since the drain placement. She feels confident with the drain management at home. Discharged home in good health and in good spirits and hemodynamically stable with a normal antibiotic prescription for the next week. Nursing staff taught her how to flush her drain. To have outpatient follow-up with the surgery office in the next 10?14 days. Discharge Plan Disposition Patient Disposition: Home Condition: Good Condition: Good Discharge Details Reason For Visit: peritonitis Admit Date/Time: 04/15/23 17:20 Admit Provider: Stiven Mendez Attending Provider: Stiven Mendez Primary Care Provider: Unknown,Unknown Home Meds and New Rx's Prescriptions: New amoxicillin-pot clavulanate 875-125 mg tablet 1 tab PO Q12H Qty: 14 0RF Discontinued acetaminophen [Aphen] 325 mg tablet 325 mg PO Q4H PRN ibuprofen [IBU] 800 mg tablet 800 mg PO Q6H Discharge Instructions Activity:: Activity as Tolerated Equipment/Supplies:: No Equipment Needed Diet:: As Tolerated DS: Summary Time Spent with Patient providing and/or coordinating discharge services: Greater than 30 minutes Status at Discharge Functional status at discharge: independent ambulation Overall status at discharge: patient is progressing back to baseline Mental Status: mental status grossly normal Speech and Movement: speech and movement normal Mood: congruent mood Affect: normal affect Exam Narrative Exam Narrative: General: Nontoxic, comfortable and interactive Neuro: Alert and oriented x3 Psych: Good mood and affect, good insight and understanding into her condition Abdomen: Soft, nondistended and nontender. Right buttock has an IR drain in place. There is purulent output in the drain tubing. I showed the patient how to flush and keep the drain to bulb suction. Psych Mental Status: mental status grossly normal Speech and Movement: speech and movement normal Mood: congruent mood Affect: normal affect DS: Data Vitals/I&O Vitals and I&O: Vital Signs Temperature 97.9 F 04/18/23 11:18 Temperature Source Tympanic 04/18/23 11:18 Pulse 66 11/11/23 11:18 Pulse Rhythm Regular 04/18/23 08:30 Respiratory Rate 18 04/18/23 11:18 Respiratory Effort Normal, Non-Labored 04/18/23 08:30 Respiratory Depth Normal 04/18/23 08:30 Respiratory Pattern Normal 04/18/23 08:30 Blood Pressure 106/70 04/18/23 11:18 Blood Pressure Mean 101 04/15/23 14:31 Blood Pressure Position Sitting 04/15/23 13:41 Pulse Oximetry 96 04/18/23 11:18 Oxygen Delivery Method Room Air 04/18/23 11:18 Oxygen Flow Rate 0 04/18/23 11:18 Pain Level 5 04/18/23 12:20 Comment bp relayed to RN 04/17/23 11:48 Intake & Output 04/17/23 04/18/23 04/18/23 23:59 11:59 23:59 Intake Total 1320 / 3020 440 / 1440 1000 / 1440 Output Total 20 / 20 Balance 1300 / 3000 440 / 1440 1000 / 1440 Intake: IV 1075 / 2375 200 / 1200 1000 / 1200 Oral 240 / 640 240 / 240 Injectate 5 / 5 Right buttock 5 / 5 Output: Drainage 20 / 20 Right buttock 20 / 20 Other: Comment voids independently Voiding Methods Toilet Data Completed and Pending Labs on day of discharge: Labs from last 24 hours 04/18/23 06:13 WBC 7.17 RBC 4.19 Hgb 11.7 Hct 35.6 L MCV 85 MCH 27.9 MCHC 32.9 RDW 12.7 Plt Count 424 H MPV 9.2 C-Reactive Protein 7.22 H PFSH All Active Problems (Updated 04/15/23 @ 21:08 by Stiven Mendez MD) Pelvic abscess in female (Acute) Social History Smoking risk assessment performed?: No Housing: condominium Time Spent with Patient Time Spent with Patient: 45-69 minutes Time was spent: preparing to see the patient(eg.review tests), obtaining and/or reviewing separately otained hiistory, ordering medications,tests, procedures, indepentently interpreting results, counseling the patient and care coordination
--- NOTE | 2023-04-18 13:08 | W.PM.DS.N ---
Date of service: 04/18/23 Time of Service: 13:08 DS: Diagnosis Discharge Diagnosis (1) Pelvic abscess in female: Status: Acute Discharge Plan Disposition Patient Disposition: Home Condition: Good Discharge Details Reason For Visit: peritonitis Admit Date/Time: 04/15/23 17:20 Admit Provider: Stiven Mendez Attending Provider: Stiven Mendez Primary Care Provider: Unknown,Unknown Hospital Course Hospital Course: The patient is a 32-year-old woman who presented with a pelvic abscess. Presumably this is secondary to perforated appendicitis since there is no active diverticulitis disease seen. She was sent to [facility] as a day?transfer for IR drainage of the abscess. This was successfully done and she was kept in the hospital 2 days afterwards for IV antibiotics and pain management. On day 3 she was tolerating a regular diet. Her pain was adequately controlled without narcotics. She was instructed on how to flush her drain and felt comfortable with this and elected to be discharged home. She will have follow-up in the next 10 to 14 days to have drain removal. She was discharged home on oral antibiotics for 7 days. Home Meds and New Rx's Prescriptions: New amoxicillin-pot clavulanate 875-125 mg tablet 1 tab PO Q12H Qty: 14 0RF Discontinued acetaminophen [Aphen] 325 mg tablet 325 mg PO Q4H PRN ibuprofen [IBU] 800 mg tablet 800 mg PO Q6H Discharge Instructions Instructions: Peritonitis (ED) Stand Alone Forms: Nursing Discharge Form Referrals: Stiven Mendez MD [ [facility]YS[facility]] - (Call Thursday to schedule follow up appointment. ) Activity:: Activity as Tolerated Equipment/Supplies:: No Equipment Needed Diet:: As Tolerated Discharge Orders Discharge Orders: Discharge Order (Routine); Ordered 04/18/23 Ordered By: Narayan Hazel DS: Summary Time Spent with Patient providing and/or coordinating discharge services: Greater than 30 minutes Status at Discharge Functional status at discharge: independent ambulation Overall status at discharge: patient is progressing back to baseline Mental Status: mental status grossly normal Speech and Movement: speech and movement normal Mood: congruent mood Affect: normal affect Exam Psych Mental Status: mental status grossly normal Speech and Movement: speech and movement normal Mood: congruent mood Affect: normal affect DS: Data Vitals/I&O Vitals and I&O: Vital Signs Temperature 97.9 F 04/18/23 11:18 Temperature Source Tympanic 04/18/23 11:18 Pulse 66 04/18/23 11:18 Pulse Rhythm Regular 04/18/23 08:30 Respiratory Rate 18 04/18/23 11:18 Respiratory Effort Normal, Non-Labored 04/18/23 08:30 Respiratory Depth Normal 04/18/23 08:30 Respiratory Pattern Normal 04/18/23 08:30 Blood Pressure 106/70 04/18/23 11:18 Blood Pressure Mean 101 04/15/23 14:31 Blood Pressure Position Sitting 04/15/23 13:41 Pulse Oximetry 96 04/18/23 11:18 Oxygen Delivery Method Room Air 04/18/23 11:18 Oxygen Flow Rate 0 04/18/23 11:18 Pain Level 5 04/18/23 12:20 Comment bp relayed to RN 04/17/23 11:48 Intake & Output 04/17/23 04/18/23 04/18/23 23:59 11:59 23:59 Intake Total 1320 / 3020 440 / 1440 1000 / 1440 Output Total 20 / 20 Balance 1300 / 3000 440 / 1440 1000 / 1440 Intake: IV 1075 / 2375 200 / 1200 1000 / 1200 Oral 240 / 640 240 / 240 Injectate 5 / 5 Right buttock 5 / 5 Output: Drainage 20 / 20 Right buttock 20 / 20 Other: Comment voids independently Voiding Methods Toilet Data Completed and Pending Labs on day of discharge: Labs from last 24 hours 04/18/23 06:13 WBC 7.17 RBC 4.19 Hgb 11.7 Hct 35.6 L MCV 85 MCH 27.9 MCHC 32.9 RDW 12.7 Plt Count 424 H MPV 9.2 C-Reactive Protein 7.22 H PFSH All Active Problems (Updated 04/15/23 @ 21:08 by Stiven Mendez MD) Pelvic abscess in female (Acute) Social History Smoking risk assessment performed?: No Housing: condominium Time Spent with Patient Time Spent with Patient: 45-69 minutes Time was spent: counseling the patient and care coordination
--- NOTE | 2023-04-18 13:21 | CMDISCH_ITS ---
Date of service: 04/18/23 Time of Service: 13:22 LACE Index Scoring Tool Questions: Length of Stay (in days): 3 Was the patient admitted via the E.D.?: Yes E.D. Visits: 0 Answers: Total Score: 6 Risk of Readmission: Low Risk Care Management Discharge Plan Reason for Hospitalization: pelvic abscess Discharge Plan: Cathy will return home with new home health orders through [facility] for behavioral technician. She will follow up with providers in the community and transport home via private vehicle with family. Patient/Family Education Needs: Review discharge instructions, discuss Ask Me Three. Services Needed at Discharge: Home Health Care Services ([facility] )
== END 2023-04-18 13:51 | disposition home or self-care (01) | DRG 759 ==
LOC: ER 16:56 → MS 18:21
PROVIDERS: Student in an Organized Health Care Education/Training Program; Surgery; Admitting Provider Surgery; Emergency Provider Emergency Medicine; Visit Provider Surgery
DX: N73.0 Acute parametritis and pelvic cellulitis (principal); D72.829 Elevated white blood cell count, unspecified; R00.0 Tachycardia, unspecified; E28.2 Polycystic ovarian syndrome
CPT/HCPCS: 00123; 36415; 80048; 80053; 85027; 86850; 86900; 86901; 96361; 96365; 96367; 96374; 96375; 99285; J1650; 74177; 76830; 76856; 81003; 83605; 84702; 85025; 86140; 99284; J0131; J0780; J1170; J1885; J2060; J2405; J2543; J3490

== ENCOUNTER → 2023-04-27 14:36 | Outpatient (CLI) | payer MEDICAID, SELFPAY ==
--- NOTE | 2023-04-27 14:15 | DI.CT_ITS ---
Exam(s) CT PELVIC W EXAM: CT PELVIC W CLINICAL HISTORY: s/p drainage abscess/Fu CT n73.9. TECHNIQUE: Imaging Protocol: Axial computed tomography images with coronal and sagittal reformatted images were created and reviewed. CONTRAST MATERIAL: Intravenous: Omnipaque 350 Contrast volume:100 ml Contrast route:IV - Oral: yes / COMPARISON: CT CT ABDOMEN PELVIS W from 04/15/2023 FINDINGS: Bladder: Symmetric distention, no gross wall thickening. Bowel: No obstruction or bowel wall thickening. Peritoneal cavity: A pigtail drainage catheter has been placed from the posterior aspect in the previ ously noted abscess collection. There is no visible residual abscess. No new abscess. No free flui d or free air. Reproductive: Unremarkable. Bones: Unremarkable. IMPRESSION: No visible residual abscess status post placement of pigtail drainage catheter. RADIATION DOSE DELIVERED: Total DLP DATA REPOSITORY: All CT scans at this facility are submitted to the National Radiology Data Registry (NRDR) Dose Index Registry (DIR) with the [employer] (A[employer]). RADIATION OPTIMIZATION: All CT scans at this facility use at least one of these dose optimization te chniques: automated exposure control; mA and/or kV adjustment per patient size (includes targeted exa ms where dose is matched to clinical indication); or iterative reconstruction.
[2023-04-27] MEDS: Omnipaque 350 MG/ML 100 ML BTL IJ (16:45)
== END ==
PROVIDERS: Visit Provider Surgery
DX: N73.9 Female pelvic inflammatory disease, unspecified (principal)
CPT/HCPCS: 72193; J3490

== ENCOUNTER 2023-04-29 07:55 | Outpatient (CLI) | payer MEDICAID, SELFPAY ==
[2023-04-29 08:12] LABS: Abs Immature Grans 0.02 10^3/uL (0.0-0.06); Absolute Eosinophil Count 0.21 10^3/uL (0.0-0.7); Absolute Lymphocyte Count 2.49 10^3/uL (1.2-3.4); Absolute Monocyte Count 0.61 10^3/uL (0.1-0.8); Absolute Neutrophil Count 3.93 10^3/uL (1.2-6.7); Basophils % 1.4; Eosinophils % 2.9; HCT 40.5 % (36.0-46.0); HGB 13.2 g/dL (11.2-15.7); Immature Grans % 0.3; Lymphocytes % 33.8; MCH 27.6 pg (27.0-33.0); MCHC 32.6 % (32.0-36.0); MCV 85 fL (80-95); MPV 8.9 fL (8.0-11.0); Monocytes % 8.3; Neutrophils % 53.3; Platelet Count 342 10^3/uL (130-400); RBC 4.79 10^6/uL (3.93-5.22); RDW 13.6 % (11.7-14.6); WBC 7.36 10^3/uL (4.4-10.8)
[2023-04-29 08:35] LABS: Ferritin 86 ng/mL (8-252)
[2023-04-29 08:45] LABS: C-Reactive Protein 0.24 mg/dL (0.0-0.3)
[2023-04-29 10:15] LABS: Procalcitonin < 0.1 ng/mL
== END 2023-04-29 07:56 | disposition home or self-care (01) ==
LOC: LBO 07:55
PROVIDERS: Visit Provider Surgery
DX: K35.32 Acute appendicitis with perforation, localized peritonitis, and gangrene, without abscess; N73.9 Female pelvic inflammatory disease, unspecified
CPT/HCPCS: 36415; 84145; 82728; 85025; 86140

== ENCOUNTER 2023-05-07 14:32 | Outpatient (CLI) | payer MEDICAID, SELFPAY ==
[2023-05-07 12:58] LABS: Abs Immature Grans 0.05 10^3/uL (0.0-0.06); Absolute Basophil Count 0.07 10^3/uL (0.0-0.2); Absolute Eosinophil Count 0.37 10^3/uL (0.0-0.7); Absolute Lymphocyte Count 3.39 10^3/uL (1.2-3.4); Absolute Monocyte Count 0.88 10^3/uL (0.1-0.8); Absolute Neutrophil Count 5.25 10^3/uL (1.2-6.7); Basophils % 0.7; Eosinophils % 3.7; HCT 43.1 % (36.0-46.0); HGB 13.9 g/dL (11.2-15.7); Immature Grans % 0.5; Lymphocytes % 33.9; MCH 27.4 pg (27.0-33.0); MCHC 32.3 % (32.0-36.0); MCV 85 fL (80-95); MPV 8.5 fL (8.0-11.0); Monocytes % 8.8; Neutrophils % 52.4; Platelet Count 333 10^3/uL (130-400); RBC 5.08 10^6/uL (3.93-5.22); RDW-SD 43.1 fL; WBC 10.01 10^3/uL (4.4-10.8)
== END 2023-05-07 14:33 | disposition home or self-care (01) ==
LOC: LBO 14:32
PROVIDERS: Visit Provider Surgery
DX: K35.32 Acute appendicitis with perforation, localized peritonitis, and gangrene, without abscess (principal); N73.9 Female pelvic inflammatory disease, unspecified
CPT/HCPCS: 36415; 85025; 86140